=== PATIENT | male | born 1970 | race Caucasian/White ===

== ENCOUNTER 2017-12-31 03:40 | Emergency (ER) | payer OTHER ==
[~2017-12-31 03:40] MED LIST: IBUPROFEN800 M1 PO; KETOROLAC TROME10 M1 PO; NAPROSYN375 MG PO; NORFLEX100 MG PO; OXYCONTIN10 M1 PO; PERCOCET 325 MG1 TA2 PO; PERCOCET 5-3251 EACH PO; ROBAXIN-750750 M1 PO
--- NOTE | 2017-12-31 03:49 | ED EAR COMPLAINT ---
History of Present Illness General Chief Complaint: Ear Complaints Stated Complaint: LEFT EARLOBE SWOLLEN,WITH PUS PER PT Source: patient Exam Limitations: no limitations Vital Signs & Intake/Output Vital Signs & Intake/Output Vital Signs Date Time Temp Pulse Resp B/P B/P Pulse O2 O2 Flow FiO2 Mean Ox Delivery Rate 12/31 0350 97.9 88 18 155/81 97 Room Air Allergies Coded Allergies: No Known Allergies (09/27/16) Reconcile Medications Cephalexin (Keflex) 500 MG CAPSULE 1 CAP PO 4 TIMES/DAY INFECTION Ibuprofen 800 MG TABLET 1 TAB PO TID PRN pain Ibuprofen 800 MG TABLET 1 TAB PO TID PRN PAIN Ketorolac Tromethamine 10 MG TABLET 1 TAB PO Q6P PRN PAIN (Reported) Methocarbamol (Robaxin-750) 750 MG TABLET 1 TAB PO TID PRN SPASM Oxycodone HCl (Oxycontin) 10 MG TAB.ER.12H 1 TAB PO BID PAIN (Reported) Oxycodone HCl/Acetaminophen (Percocet 5-325 MG Tablet) 1 EACH TABLET 1 TAB PO Q6H PRN PAIN Sulfamethoxazole/Trimethoprim (Bactrim Ds Tablet) 800 MG-160 MG TABLET 1 TAB PO BID INFECION Triage Nurses Notes Reviewed? yes Onset: Gradual Duration: hour(s): Timing: recent history Injury Environment: home Severity: mild Modifying Factors: Worsens With: other (worse w/palpation). Associated Symptoms: left earlobe tenderness, redness HPI: 47 yo gentleman h/o hypertension presents with left earlobe redness, tenderness, swelling, which awoke him from sleep. He notes that he was well when he went to sleep. He has no fever, chills, insect bites, abrasions. He notes a mild serous type drainage. He is otherwise well. Past History Travel History Traveled to [place] past 21 day No Medical History Any Pertinent Medical History? 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 No Review of Systems Review of Systems Constitutional: Reports: no symptoms. EENTM: Reports: no symptoms. Respiratory: Reports: no symptoms. Cardiovascular: Reports: no symptoms. GI: Reports: no symptoms. Genitourinary: Reports: no symptoms. Musculoskeletal: Reports: no symptoms. Skin: Reports: no symptoms. Neurological/Psychological: Reports: no symptoms. Hematologic/Endocrine: Reports: no symptoms. Immunologic/Allergic: Reports: no symptoms. All Other Systems: Reviewed and Negative Physical Exam Physical Exam General Appearance: well developed/nourished, mild distress Head: atraumatic Eyes: Bilateral: normal appearance. Ears: Left: erythema, swelling, tenderness. Nose: normal inspection Mouth/Throat: normal mouth inspection Neck: normal inspection, supple Cardiovascular/Respiratory: no respiratory distress Neurologic/Psych: no motor/sensory deficits, awake, alert Skin: see above... no significant abscess in earlobe appreciated Progress Differential Diagnoses I considered the following diagnoses in my evaluation of the patient: cellulitis vs abscess Plan of Care: Current Medications Sig/Naveed Start time Last Medication Dose Stop Time Status Admin Cephalexin 500 MG ONCE ONE 01/01 400 UNVr (Keflex) 12/31 400 Ibuprofen 800 MG ONCE ONE 01/01 400 UNVr (Motrin) 12/31 400 Trimethoprim/ 1 TAB ONCE ONE 01/01 400 UNVr Sulfamethoxazole 12/31 400 (Bactrim DS) Initial ED EKG: none Departure Departure Disposition: HOME OR SELF CARE Condition: Stable Clinical Impression Primary Impression: Cellulitis of left earlobe Referrals: Nitin TALBOT,Constantino Rajan (PCP/Family) Departure Forms: Customer Survey General Discharge Information Prescriptions: Current Visit Scripts Sulfamethoxazole/Trimethoprim (Bactrim Ds Tablet) 1 TAB PO BID #14 TAB Cephalexin (Keflex) 1 CAP PO 4 TIMES/DAY #28 CAP Ibuprofen 1 TAB PO TID PRN pain #30 TAB
[2017-12-31 03:50] VITALS: BP 155/81
[2017-12-31] MEDS ORDERED: IBUPROFEN800 M1 PO (03:51)
[2017-12-31] MEDS ORDERED: KEFLEX500 M1 PO (03:51)
[2017-12-31] MEDS ORDERED: BACTRIM DS TAB1 EACH PO (03:51)
== END 2017-12-31 03:57 ==
LOC: ERH 03:40
DX: H60.12 Cellulitis of left external ear (principal)